=== PATIENT | male | born 1990 | race Caucasian/White ===

== ENCOUNTER 2025-04-04 13:31 | Emergency (ER) | payer MEDICAID, SELFPAY ==
[2025-04-04 13:32] VITALS: BP 172/95; PULSE 91; RESP 18; TEMP 37; O2SAT 100
--- NOTE | 2025-04-04 13:53 | EKG12_ITS ---
Test Reason : CP Blood Pressure : */* mmHG Vent. Rate : 81 BPM Atrial Rate : 81 BPM P-R Int : 180 ms QRS Dur : 104 ms QT Int : 368 ms P-R-T Axes : 37 4 43 degrees QTcB Int : 427 ms Normal sinus rhythm Normal ECG Confirmed by MT MCMAHON, PEDRITO ([id number]), editor news CARTER WILSON ([id number]) on 04/07/2025 9:00:12 AM Referred By: DAMARIS/KISHOR Confirmed By: PEDRITO AMOR MD
--- NOTE | 2025-04-04 13:55 | EDS_ITS ---
HPI History of Present Illness Chief Complaint: Chest Pain Narrative Narrative: Patient is a 34-year-old male past medical history of atrial fibrillation on Eliquis, bicuspid aortic valve who presents to the emergency department chief complaint of lightheadedness, almost passing out, chest discomfort. Patient states that he was at work earlier today and eating lunch and noted that he went to eat a burrito and noted that he folic his heart started racing his chest had chest discomfort shortness of breath and felt like he was going to pass out. Patient states that he was at [facility] for this in the past and notes that he had a full workup and they are unsure why he went into A-fib. He states that has been taking his Eliquis as prescribed. He states that yesterday he had a stress test and an echocardiogram but notes that it was at that facility. He states that they are over here working today therefore they came to this hospital to be evaluated. [facility] Medical History (Updated 04/04/25 @ 16:[address] Fernando Briscoe DO) Valvular heart disease Afib Allergy/AdvReac Type Severity Reaction Status Date / Time No Known Allergies Allergy Verified 04/04/25 13:33 Social History Smoking Status: Never smoker ROS ROS ED ROS Narrative Constitutional: Complains of lightheadedness denies any fevers, chills, headaches Eyes: Denies double vision blurry vision change in vision Cardiovascular: Complaint chest pain as noted above Respiratory: Complains of cough Abdomen: Denies abdominal pain nausea vomit diarrhea : Denies any urinary symptoms Neurological: Denies any numbness, aches, tingling Musculoskeletal: Denies back pain Skin: Denies any rashes or lesions EXAM Physical Exam Narrative Exam Narrative: General: Patient is lying bed rest comfortably did not appear to be acute distress Head: Atraumatic, normocephalic Eyes: PERRL bilaterally, EOMI bilateral, no conjunctival injection noted Neck: Soft, supple, trachea midline Cardiovascular: Regular rate and rhythm no murmurs gallops rubs noted Respiratory: Clear to auscultation bilaterally no rales rhonchi or wheezes noted Abdomen: Soft, nondistended, nontender to palpation Extremities: Radial pulses +2/4 in the bilateral extremities, +5/5 strength noted in the bilateral upper and lower extremities Neurological: Patient follow commands knew that he was at [facility] year is 2024 Skin: Warm, dry, intact no rashes lesions noted Const Vital Signs: 04/04/25 13:32 04/04/25 14:29 04/04/25 14:30 Temperature 98.6 F Temperature Source Oral Pulse Rate 91 Respiratory Rate 18 Respiratory Effort Normal Non-Labored Respiratory Pattern Normal Blood Pressure 172/95 H Blood Pressure Mean 120 Pulse Ox 100 Oxygen Delivery Method Room Air Room Air 04/04/25 15:56 04/04/25 16:09 Temperature Temperature Source Pulse Rate 75 87 Respiratory Rate 20 H 17 Respiratory Effort Respiratory Pattern Blood Pressure Blood Pressure Mean Pulse Ox 99 98 Oxygen Delivery Method Room Air MDM MDM MDM Narrative Medical decision making narrative: Patient is a 34-year-old male who presented to the emergency department chief c omplaint of near syncope, chest pain and feeling his heart was racing in his chest. On the differential diagnose includes but not limited to atrial fibrillation with rapid ventricular response, ACS, pneumonia, pneumothorax, SVT. Once workup is obtained reviewed he will be reevaluated. Patient CBC was reviewed and is largely unremarkable no evidence of leukocytosis white blood count normal at 4.8, he was 14, plate count normal at 219. Patient INR was noted be 1.1, PT of 14.5. Patient sodium was 140, potassium normal 3.6, creatinine was 0.68. Patient's troponin was less than 6 delta troponin pending. Patient's EKG was reviewed showed sinus rhythm with a rate of 81 bpm. Patient's TSH normal at 0.99 and free T4 and T3 normal at 1.10 and 3.4 respectively proBNP normal at 42. Patient chest x-ray was reviewed and showed no acute abnormalities this was reviewed by myself and by radiology. Patient ambulated well here in the emergency department no tachycardia or hypoxia. The entire time that he has been in the emergency room he has not had any further symptoms and no abnormal arrhythmias noted on the monitor. Patient will placed on 48-hour Holter monitor he was advised to follow-up with his doctor in the outpatient setting on this. He was advised to to follow-up on the stress test and echocardiogram as well. He was advised to continue to take his Eliquis as prescribed. Patient's delta troponin pending this will be signed out to oncoming provider pending this is normal he was discharged home. Patient will be referred to cardiology and electrophysiology per his request at [place]. All question concerns answered at bedside. See addendum for ultimate disposition details. Lab Data Labs: Laboratory Results - last 24 hr 04/04/25 14:36 WBC 4.8 RBC 4.40 L Hgb 14.0 Hct 39.1 L MCV 88.9 MCH 31.8 MCHC 35.8 RDW Std Deviation 38.3 RDW Coeff of Edd 11.9 Plt Count 219 MPV 10.7 Immature Gran % (Auto) 0.600 Neut % (Auto) 54.6 Lymph % (Auto) 31.7 Ross % (Auto) 10.4 H Eos % (Auto) 1.7 Baso % (Auto) 1.0 Absolute Neuts (auto) 2.6 Absolute Lymphs (auto) 1.53 Nucleated RBC % 0 PT 14.5 INR 1.1 APTT 29.7 Sodium 140 Potassium 3.6 Chloride 104 Carbon Dioxide 25.6 Anion Gap 11 BUN 7 Creatinine 0.68 L Estim Creat Clear Calc 210.00 Est GFR (MDRD) Non-Af 127 BUN/Creatinine Ratio 10.6 Glucose 90 Calcium 9.2 Magnesium 2.0 Troponin T High Sens < 6 NT pro BNP II 42 TSH 0.998 Free T4 1.10 Free T3 pg/dL 3.4 Radiography Diagnostic Testing: Clinical Impression(s) from Imaging Studies Chest X-Ray 04/04/25 15:25 IMPRESSION: No acute abnormality Reading Location: [facility] Discharge Plan Triage Chief Complaint: Chest Pain ED Provider: Fernando Briscoe Dx/Rx/DC Orders Clinical Impression: Chest pain, Heart palpitations, History of atrial fibrillation Primary Care Provider: Care Physician,No Primary Referrals: Care Physician,No Primary [Primary Care Provider] - Activity Restrictions/Additional Instructions: Wear Holter monitor as prescribed. Follow-up with your physicians in the outpatient setting. Return with worsening symptoms or concerns. Follow-up with casino slot supervisor Dr. Maier at [place] [id number] to [facility] [address] [place] [address] phone number [phone]. You can also follow-up with [place] [facility] their phone number is [phone] this is also at [facility]. Print Language: Swiss Disposition Disposition: Home, Self Care
[2025-04-04] MEDS: 0.9% Normal Saline (1000mL) 1,000 ML 999 ML IV (14:28)
[2025-04-04 14:34] VITALS: BMI 32.4
[2025-04-04 14:49] LABS: Hematocrit 39.1 % (40-54); Hemoglobin 14.0 g/dL (13.0-16.5); Immature Granulocytes Count 0.030 X10^3/uL (0.0-0.0); Mean Corp Hgb Conc 35.8 g/dL (32-36); Mean Corpuscular Volume 88.9 fL (80-94); Mean Platelet Vol. 10.7 fl (6.2-12.0); NRBC Flagged by Analyzer 0 % (0-5); Platelet Count 219 K/mm3 (150-450); RBC Distribution Width CV 11.9 % (11.6-14.6); RBC Distribution Width SD 38.3 fl (35.1-43.9); Red Blood Count 4.40 M/mm3 (4.6-6.2); White Blood Count 4.8 K/mm3 (4.4-11.0)
[2025-04-04 15:00] LABS: Prothrombin Time (Protime)PT. 14.5 SECONDS (11.7-14.9)
[2025-04-04 15:01] LABS: Partial Thromboplast Time 29.7 Seconds (24.1-36.2)
--- NOTE | 2025-04-04 15:25 | RAD_ITS ---
PROCEDURE: CHEST PA AND LATERAL 04/04/2025 REASON FOR EXAM: COUGH TECHNIQUE: CHEST PA AND LATERAL COMPARISON: None FINDINGS: Hardware: EKG leads are present Heart: Normal Mediastinum: Normal Lungs: Clear Bones: Normal RAD/Chest PA and Lateral IMPRESSION: No acute abnormality Reading Location: [id number]
[2025-04-04 15:33] LABS: Anion Gap 11 (5-15); BUN 7 mg/dL (4-19); BUN/Creat Ratio 10.6 RATIO (10-20); Calcium,Total 9.2 mg/dL (7.6-11.0); Carbon Dioxide 25.6 mmol/L (21.0-32.0); Chloride 104 mmol/L (98-108); Estimated Creatinine Clearance 210.00 ml/min (50-250); Glucose 90 mg/dL (70-99); Magnesium 2.0 mg/dL (1.5-2.2); Potassium 3.6 mmol/L (3.3-5.1); Pro- Brain NATRIURETIC PEPTIDE 42 pg/mL (<=450); Troponin T High Sensitivity < 6 ng/L (<=22)
[2025-04-04 15:36] LABS: Free T3 3.4 pg/mL (2.18-3.98)
[2025-04-04 15:56] VITALS: PULSE 75; RESP 20; O2SAT 99
[2025-04-04 16:08] VITALS: O2SAT 98
[2025-04-04 16:09] VITALS: PULSE 87; RESP 17; O2SAT 98
[2025-04-04 17:48] LABS: Troponin T High Sens 2 HR < 6 ng/L (<=22)
[2025-04-04 18:20] VITALS: BP 124/76; PULSE 87; RESP 17; TEMP 36.6; O2SAT 98
== END 2025-04-04 18:24 | disposition home or self-care (01) ==
PROVIDERS: Emergency Provider Emergency Medicine; Visit Provider Emergency Medicine
DX: R07.9 Chest pain, unspecified (principal); I48.91 Unspecified atrial fibrillation; R00.2 Palpitations; Z79.01 Long term (current) use of anticoagulants
CPT/HCPCS: 71046; 80048; 83735; 83880; 84439; 84443; 84481; 84484; 85025; 85610; 85730; 93005; 93225; 93226; 96360; 96361; 99284; A4216

== ENCOUNTER → 2025-04-04 | Outpatient (CLI) | payer MEDICAID, SELFPAY | END | disposition home or self-care (01) | LOC: PSN 16:29 | PROVIDERS: Visit Provider Emergency Medicine | DX: Z00.00 Encounter for general adult medical examination without abnormal findings (principal) ==